=== PATIENT | male | born 2000 | race Hispanic/Latino ===

== ENCOUNTER 2022-08-07 01:08 | Emergency (ER) | payer SELFPAY ==
[~2022-08-07] VITALS: Ht 175.3 cm; Wt 102.5 kg
--- NOTE | 2022-08-07 01:29 | NUR ---
Arrival 22 y/o male ambulatory to ED c/o n/v/d abd pain x 2 days. took an antacid with poor effect. monitors applied, Dr. Page notified.
[2022-08-07 01:30] VITALS: BP 136/84
[2022-08-07] MEDS ORDERED: TORADOL IV STA (01:41)
--- NOTE | 2022-08-07 01:44 | ER.PDOC ---
General Chief Complaint: Requesting Medical Care Stated Complaint: ABD PAIN Time seen by MD: 01:43 Source: patient Exam Limitations: no limitations History of Present Illness Initial Comments Abdominal pain for 4 days. No fever or chills. No nausea, vomiting or diarrhea. Severity/Quality: moderate, sharpness Radiation: no radiation Associated Symptoms: denies symptoms Exacerbated by: nothing Relieved By: nothing Vital Signs First Vital Signs Date Time Temp Pulse Resp B/P (MAP) Pulse Ox O2 Delivery O2 Flow Rate FiO2 08/07/22 01:30 99.5 86 20 136/84 (101) 98 Room Air* 0 21 Last Vital Signs Date Time Temp Pulse Resp B/P (MAP) Pulse Ox O2 Delivery O2 Flow Rate FiO2 08/07/22 02:30 99.5 76 20 111/56 (74) 98 Room Air* 0 21 Past Medical History Medical History: no pertinent history Surgical History: no surgical history Family History Significant Family History: no pertinent family hx Social History Smoking: non-smoker Alcohol Use: rarely Drug Use: none Constitutional: no symptoms reported EENTM: no symptoms reported Respiratory: no symptoms reported Cardiovascular: no symptoms reported Gastrointestinal: see HPI All Other Systems: Reviewed and Negative Physical Exam General Appearance: No Apparent Distress, WD/WN HEENT: PERRL/EOMI, Normal ENT Inspection, TMs Normal, Pharynx Normal Neck: Non-Tender, Full Range of Motion, Supple, Normal Inspection Respiratory: chest non-tender, lungs clear, normal breath sounds, no respiratory distress, no accessory muscle use Cardiovascular: Normal Peripheral Pulses, Regular Rate, Rhythm, No Edema, No G allop, No JVD, No Murmur Gastrointestinal: Normal Bowel Sounds, No Organomegaly, No Pulsatile Mass, Tenderness (upper andomen) Back: Normal Inspection, No CVA Tenderness, No Vertebral Tenderness Extremities: Normal Range of Motion, Non-Tender, Normal Inspection, No Pedal Edema, No Calf Tenderness, Normal Capillary Refill, Pelvis Stable Neurologic/Psychiatric: nocturnist II-XII NML as Tested, No Motor/Sensory Deficits, Alert, Normal Mood/Affect, Oriented x 3 Skin: Normal Color, Warm/Dry Lymphatic: No Adenopathy Results/Orders Results/Orders Orders - INGRID JACKSON MD Cbc With Auto Diff (08/07/22 01:41) Comprehensive Metabolic Panel (08/07/22 01:41) Lipase (08/07/22 01:41) Helicobacter Pylori (08/07/22 01:41) PT (08/07/22 01:41) Ct Abd/Pel With Iv Contrast (08/07/22 01:41) Partial Thromboplastin Time. (08/07/22 01:41) Urinalysis (08/07/22 01:41) Ketorolac Tromethamine (Toradol) (08/07/22 01:41) Ketorolac Tromethamine (Toradol) (08/07/22 01:54) Vital Signs Date Time Temp Pulse Resp B/P (MAP) Pulse Ox O2 Delivery O2 Flow Rate FiO2 08/07/22 02:30 99.5 76 20 111/56 (74) 98 Room Air* 0 21 08/07/22 01:30 99.5 86 20 98 08/07/22 01:30 99.5 86 20 08/07/22 01:30 99.5 86 20 136/84 (101) 98 Room Air* 0 21 Administered Medications Medications (Trade) Dose Ordered Sig/Jessi Route PRN Reason Start Time Stop Time Status Last Admin Dose Admin Ketorolac Tromethamine (Toradol) 30 mg STAT STAT IV 08/07/22 01:41 08/07/22 01:44 DC 08/07/22 01:57 30 MG Laboratory Tests Test 08/07/22 01:57 08/07/22 02:57 White Blood Count 6.2 10^3/uL (4.5-11.0) Red Blood Count 5.59 10^6/uL (4.50-5.90) Hemoglobin 16.9 g/dL (13.9-16.3) H Hematocrit 49.9 % (37.0-53.0) Mean Corpuscular Volume 89.3 fL (78-100) Mean Corpuscular Hemoglobin 30.2 pg (26-34) Mean Corpuscular Hemoglobin Concent 33.9 g/dL (33-36.5) Red Cell Distribution Width 12.1 % (11.5-14.5) Platelet Count 304 10^3/uL (150-400) Mean Platelet Volume 9.6 fL (7.8-11.0) Neutrophils (%) (Auto) 49.1 % (41.0-85.0) Lymphocytes (%) (Auto) 33.4 % (24.0-44.0) Monocytes (%) (Auto) 15.1 % (5.0-12.0) H Neutrophils # (Auto) 3.0 10^3/uL (1.8-7.7) Lymphocytes # (Auto) 2.06 10^3/uL1 (1.0-4.8) Monocytes # (Auto) 0.9 10^3/uL (0.3-0.8) H Absolute Immature Granulocyte (auto 0.02 10^3 u/L (0-2) Absolute Eosinophils (auto) 0.1 10^3/uL (0.0-0.2) Immature Granulocytes % 0.30 % (0.00-0.50) Eosinophils % 1.8 % (0.0-5.0) Basophils % 0.3 % (0.0-0.2) H Basophils # 0.0 10^3/uL (0.0-0.1) Prothrombin Time 10.3 SEC (9.1-11.5) Prothrombin Time INR (Non-Therap) 1.0 Activated Partial Thromboplast Time 27.2 SEC (22.5-33.1) Sodium Level 140 mmol/L (132-145) Potassium Level 3.8 mmol/L (3.6-5.2) Chloride Level 101.0 mmol/L (96-109) Carbon Dioxide Level 31.5 mmol/L (20.0-32) Anion Gap 11.3 Blood Urea Nitrogen 11 mg/dL (7-18) Creatinine 1.09 mg/dL (0.59-1.40) Estimated GFR () 101.4 (>/=60) Est GFR (CKD-EPI)(Non-Afr [place]) 83.8 (>/=60) BUN/Creatinine Ratio 10.0 Glucose Level 88 mg/dL (70-110) Calcium Level 8.8 mg/dL (8.4-10.5) Total Bilirubin 0.3 mg/dL (0.2-1.0) Aspartate Amino Transferase (AST) 38 U/L (0-35) H Alanine Aminotransferase (ALT) 41 U/L (12-78) Alkaline Phosphatase 107 U/L (50-136) Total Protein 7.1 g/dL (6.4-8.2) Albumin 4.0 g/dL (3.4-5.0) Globulin 3.1 Albumin/Globulin Ratio 1.290 Lipase 74 U/L (114-286) L Helicobacter pylori Screen NEGATIVE (NEGATIVE) Urine Collection Type CCMS Urine Color YELLOW Urine Appearance CLEAR Urine Bilirubin NEGATIVE (NEGATIVE) Urine Ketones NEGATIVE (NEGATIVE) Urine Specific [place] 1.015 (1.005-1.030) Urine pH 7.0 (4.5-8.0) Urine Protein NEGATIVE (NEGATIVE) Urine Urobilinogen 1.0 E.U./dL (0.2) Urine Nitrate NEGATIVE (NEGATIVE) Urine Leukocyte Esterase NEGATIVE (NEGATIVE) Urine Glucose (Auto)(UA) NEGATIVE (NEGATIVE) Urine Blood NEGATIVE (NEGATIVE) Progress Progress CT abdomen/pelvis show normal appendix, no acute findings. CBC, chemistry and urinalysis are normal. Lipase is 74. H. pylori is negative. Patient received Toradol with significant improvement in pain. He is feeling better to go home. ER DEPART Departure Time of Disposition: 04:02 Disposition: 01 HOME / SELF CARE / HOMELESS Impression: Primary Impression: Nonspecific abdominal pain Condition: Improved Referrals: PCP,UNKNOWN (PCP) PRIMARY CARE PROVIDER Additional Instructions: Omeprazole Follow-up with your PCP in 2 to 3 days Return to ED if worsening symptoms or concerns Duration or Time Spent with Pa: 60 min INGRID JACKSON MD Aug 07, 2022 01:44
[2022-08-07] MEDS ORDERED: TORADOL ONE (01:54)
[2022-08-07 02:02] LABS: BASOPHIL % 0.3 % (0.0-0.2); EOSINOPHIL # 0.1 10^3/uL (0.0-0.2); EOSINOPHIL % 1.8 % (0.0-5.0); LYMPHOCYTES # 2.06 10^3/uL1 (1.0-4.8); LYMPHOCYTES % 33.4 % (24.0-44.0); MEAN CORP HGB 30.2 pg (26-34); MONOCYTES # 0.9 10^3/uL (0.3-0.8); MONOCYTES % 15.1 % (5.0-12.0); NEUTROPHILS % 49.1 % (41.0-85.0); PLATELET COUNT 304 10^3/uL (150-400); RED CELL DISTRIBUTION WIDTH 12.1 % (11.5-14.5)
[2022-08-07 02:30] VITALS: BP 111/56
[2022-08-07 02:39] LABS: CARBON DIOXIDE 31.5 mmol/L (20.0-32)
[2022-08-07 03:11] LABS: BILIRUBIN,URINE NEGATIVE (NEGATIVE)
--- NOTE | 2022-08-07 03:51 | DIREP ---
PROCEDURE:CT ABDOMEN/PELVIS W/ CONTRAST COMPARISON:None. INDICATIONS:Upper abdominal pain TECHNIQUE:Axial images were created through the abdomen and pelvis with non-ionic intravenous contrast material. No oral contrast was administered. Sagittal and coronal reconstructions were performed from source images. FINDINGS: LUNG BASES:Normal. No visible pulmonary or pleural disease. LIVER:Normal. No significant liver lesions are identified. BILIARY:Normal. No visible dilatation or calcification. PANCREAS:Normal. No lesion, fluid collection, ductal dilatation, or atrophy. SPLEEN:Normal. No enlargement or focal lesion. ADRENALS:Normal. No mass or enlargement. URINARY TRACT:Normal. No focal lesions or hydronephrosis. Symmetric bilateral renal enhancement. AORTA/VASCULAR:Normal. No aneurysm. RETROPERITONEUM:Normal. No mass or adenopathy. BOWEL/MESENTERY:The appendix is visualized and appears normal. There is no intestinal obstruction, free fluid, free air or mesenteric inflammatory changes. ABDOMINAL WALL:Normal. No mass or hernia. PELVIC ORGANS:Normal. No visible mass. Pelvic organs appropriate for patient age. BONES:Normal for age. No bony lesion or acute fracture. OTHER:Negative. CONCLUSION:Normal appendix. No acute findings. Dictated by: Sarath Dallas MD on 08/07/2022 at 03:46 AM
[2022-08-07 04:05] VITALS: BP 116/62
== END 2022-08-07 04:10 | disposition home or self-care (01) ==
LOC: ER 01:08
DX: R10.10 Upper abdominal pain, unspecified (principal)
CPT/HCPCS: 99285; 74177; 96374; 81003; 80053; 85025; 86677; 36415; 83690; 85610; 85730; J1885; Q9965